=== PATIENT | male | born 1975 | race Caucasian/White ===

== ENCOUNTER → 2019-12-18 | Outpatient (CLI) | payer BC ==
[2019-12-18 09:46] LABS: POTASSIUM 4.3 mmol/L (3.5-5.1)
[2019-12-18 09:47] LABS: ALBUMIN 4.5 g/dL (3.5-5.0)
[2019-12-18 09:48] LABS: CALCIUM 9.5 mg/dL (8.3-10.5)
[2019-12-18 09:51] LABS: TOTAL BILIRUBIN 0.5 mg/dL (0.2-1.2)
== END ==
LOC: LAB 09:17
PROVIDERS: Family Medicine
DX: Z12.5 Encounter for screening for malignant neoplasm of prostate (principal); D18.01 Hemangioma of skin and subcutaneous tissue; E66.9 Obesity, unspecified; R09.89 Other specified symptoms and signs involving the circulatory and respiratory systems; Z80.42 Family history of malignant neoplasm of prostate